=== PATIENT | male | born 1970 | race African-American/Black ===

== ENCOUNTER → 2020-07-10 | Outpatient (CLI) | payer MEDICAID ==
--- NOTE | 2020-07-10 10:15 | Diagnostic Imaging Report ---
INDICATION: Cough and wheezing, not getting better. COMPARISON: 11/02/2011. FINDINGS: Frontal and lateral views of the chest demonstrate normal heart size and pulmonary vascularity. The lungs are clear. There are no signs of infiltrate, pleural effusions or pneumothoraces. The visualized osseous structures show no acute abnormalities. IMPRESSION: 1. No acute process. No signs of infiltrates, effusions or pneumothoraces. Dictated by: Dictated on workstation # [id number]
== END ==
LOC: RAD 09:57
PROVIDERS: ATTEND Family Medicine
DX: R05 Cough (principal); R06.2 Wheezing
CPT/HCPCS: 71046

== ENCOUNTER 2021-10-05 14:29 | Emergency (ER) | payer MEDICAID ==
[~2021-10-05] VITALS: Ht 193 cm; Wt 113.0 kg
[2021-10-05 14:30] VITALS: BP 109/99
--- NOTE | 2021-10-05 14:38 | ED EENT ---
History of Present Illness General Stated Complaint: R EYE SWOLLEN Source: patient Exam Limitations: no limitations (NOHEMI PRAKASH APRN) History of Present Illness Date Seen by Provider: Oct 05, 2021 Time Seen by Provider: 14:36 Initial Comments to ER with erythema burning and itching to the right eye since yesterday no known injury. No fevers no chills. Timing/Duration: yesterday Severity: moderate Location: eye (R) Prearrival Treatment: no prearrival treatment Associated Symptoms: denies symptoms (NOHEMI PRAKASH APRN) Allergies and Home Medications Allergies Coded Allergies: No Known Drug Allergies (Unverified , 10/05/21) Patient Home Medication List Home Medication List Reviewed: Yes (NOHEMI PRAKASH APRN) Ketorolac Tromethamine (Ketorolac Tromethamine) 0.4 % Drops, 1 DROP OP TID PRN for PAIN-MILD (1-4) Prescribed by: NOHEMI PRAKASH on 10/05/21 7571 Last Action: New Order Review of Systems Review of Systems Constitutional: see HPI Eyes: See HPI, Drainage Ears: No Symptoms Reported Nose: no symptoms reported Mouth: no symptoms reported Throat: no symptoms reported Respiratory: no symptoms reported Cardiovascular: no symptoms reported Musculoskeletal: no symptoms reported Skin: no symptoms reported (NOHEMI PRAKASH APRN) Physical Exam Vital Signs Vital Signs - First Documented 10/05/21 14:30 Temp 36.3 Pulse 61 Resp 16 B/P (MAP) 109/99 (102) Pulse Ox 99 (JANE ADAMES MD) Height, Weight, BMI Height: '" Weight: lbs. oz. kg; BMI Method: General Appearance: WD/WN, no apparent distress Eyes: right eye other (Tearing noted. Erythema of the bulbar and palpebral c onjunctiva. No hyphema. Pupil is reactive.); bilateral eye PERRL, bilateral eye EOMI Ears: bilateral ear auricle normal, bilateral ear canal normal, bilateral ear TM normal Neck: non-tender, full range of motion Cardiovascular: regular rate, rhythm, no murmur Respiratory: chest non-tender, lungs clear Neurologic/Psychiatric: alert, normal mood/affect, oriented x 3 Skin: normal color, warm/dry (NOHEMI PRAKASH APRN) Departure Communication (Admissions) There is no area of fluorescein dye uptake within the cornea. 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 he will call him tomorrow for an appointment time. In the meantime we have given him erythromycin ointment here half an inch every 6 hours (NOHEMI PRAKASH APRN) Impression Primary Impression: Conjunctivitis Disposition: 01 HOME, SELF-CARE Condition: Stable Departure-Patient Inst. Decision time for Depature: 14:38 (NOHEMI PRAKASH APRN) Referrals: DAVID CHOWDHURY DO (PCP/Family) Primary Care Physician Patient Instructions: Conjunctivitis ([place]) Add. Discharge Instructions: 1. Return to ER for any concerns 2. Use the eye ointment into the lower eyelid half-inch every 6 hours. Follow- up with your eye doctor later this week. 3. I did send in some pain relief eye drops to [facility] if you need them--one dr op every 8 hours Scripts Ketorolac Tromethamine (Ketorolac Tromethamine) 0.4 % Drops 1 DROP OP TID PRN for PAIN-MILD (1-4), #1 DROPS . Prov: NOHEMI PRAKASH APRN 10/05/21 ATTENDING PHYSICIAN NOTE: I was physically present as attending physician in the emergency department during the care of this patient, but I was not directly involved in the decision making or delivery of care for this patient. (JANE ADAMES MD) NOHEMI PRAKASH APRN Oct 05, 2021 14:38 JANE ADAMES MD Oct 07, 2021 06:48
[2021-10-05] MEDS ORDERED: ERYTHROMYCIN OPHTH OINT 1 GM (SINGLE USE) TUBE ONE (14:41)
[2021-10-05] MEDS ORDERED: FLUORESCEIN (FLUOR-I-STRIPS) 1 MG STRP OP ONE (14:45)
[2021-10-05] MEDS ORDERED: TETRACAINE 0.5% OPHTH SOLN 4 ML BTL (SINGLE DOSE ONLY) OP ONE (14:45)
[2021-10-05] MEDS ORDERED: ERYTHROMYCIN OPHTH OINT 1 GM (SINGLE USE) TUBE OP SCH ×2 (14:45→22:00)
[2021-10-05] MEDS ORDERED: KETO5DRO79 OP ×2 (14:50→14:54)
== END 2021-10-05 14:53 | disposition home or self-care (01) ==
LOC: EDUNIT# 14:29 → ER 14:31
DX: H10.9 Unspecified conjunctivitis (principal); Z28.311 Partially vaccinated for COVID-19
CPT/HCPCS: 99281